=== PATIENT | female | born 1975 | race Caucasian/White ===

== ENCOUNTER 2017-02-06 17:58 | Emergency (ER) | payer BC, OTHER ==
[~2017-02-06] VITALS: Ht 160 cm; Wt 95.2 kg
[~2017-02-06 17:58] MED LIST: DIGESTIVE ENZYME PO; SERT100T PO
[2017-02-06 18:04] VITALS: TEMP 36.7; Ht 160 cm; Wt 95.2 kg
[2017-02-06] MEDS ORDERED: KETOROLAC TROMETHAMINE 60 MG/2 ML VIAL IM STA (18:18)
--- NOTE | 2017-02-06 19:06 | DIAGNOSTIC IMAGING REPORT ---
RIGHT WRIST W/NAVICULAR MIN 3 VIEWS CLINICAL HISTORY: right wrist pain/swelling s/p fall. COMPARISON: None FINDINGS: Alignment of the right carpal bones is anatomic. Carpal bones appear intact. There is a comminuted, displaced fracture of the base of the right fifth metacarpal with intra-articular extension. A few bone fragments are present. There is also a displaced comminuted fracture within the base of the proximal phalanx of the right fifth finger. IMPRESSION: 1. No carpal bone fracture identified. 2. Comminuted, displaced fracture of the base of the right fifth metacarpal with intra-articular extension. 3. Comminuted, displaced fracture of the base of the proximal phalanx of the right fifth finger. Electronically signed by: Amandeep Sims M.D. 02/06/2017 7:04 PM Dictated Date/Time: 02/06/2017 7:02 PM
--- NOTE | 2017-02-06 19:07 | DIAGNOSTIC IMAGING REPORT ---
RIGHT HAND MIN 3 VIEWS ROUTINE CLINICAL HISTORY: right hand pain/swelling s/p fall. COMPARISON: None FINDINGS: There is a comminuted, displaced fracture within the base of the right fifth metacarpal with intra-articular extension. A few bone fragments are present. There is an acute fracture within the base of the proximal phalanx of right fifth finger which is comminuted and displaced. No additional fractures are identified on this examination. IMPRESSION: 1. Comminuted, displaced fracture of the base of the right fifth metacarpal with intra-articular extension. 2. Comminuted, displaced fracture of the base of the proximal phalanx of the right fifth finger. Electronically signed by: Amandeep Sims M.D. 02/06/2017 7:05 PM Dictated Date/Time: 02/06/2017 7:04 PM
--- NOTE | 2017-02-06 20:12 | DIAGNOSTIC IMAGING REPORT ---
CT OF THE HEAD WITHOUT CONTRAST CLINICAL HISTORY: fall, head injury COMPARISON STUDY: Head CT October 14, 2014. CT DOSE: 537.48 mGy.cm TECHNIQUE: Helical axial images of the head were obtained without IV contrast. Automated exposure control was utilized for the study. A dose lowering technique was utilized adhering to the principles of ALARA. FINDINGS: No acute intracranial hemorrhage, midline shift or mass effect is present. Brain volume is normal. Ventricular system is normal. Basilar cisterns are patent. There are no extra-axial collections. Garza-white differentiation is maintained. There is no calvarial fracture. IMPRESSION: 1. No acute intracranial findings. 2. No calvarial fracture. Electronically signed by: Amandeep Sims M.D. 02/06/2017 8:11 PM Dictated Date/Time: 02/06/2017 8:08 PM
[2017-02-06] MEDS ORDERED: CEPH500C PO (20:28)
[2017-02-06] MEDS ORDERED: CEPHALEXIN 500MG HOME PACK 1 EA BTL PO ONE (20:30)
--- NOTE | 2017-02-06 20:33 | EMERGENCY ROOM VISIT NOTE ---
ED Visit Note First contact with patient: 18:10 CHIEF COMPLAINT: Fall, Hand injury, hit her head HISTORY OF PRESENT ILLNESS: This 41-year-old female patient presented to the emergency department approximately 30 minutes after they injured the posterior medial aspect of the right hand and fifth digit. The patient states she was walking in [place] [email or web address] on a sidewalk, when she tripped and stumbled and fell face first onto the sidewalk. The patient states she attempted to stop her fall with an outstretched right hand, however struck her face and now complains of abrasions on her face as well as right hand pain. The patient does have some minimal abrasions on her left hand and right knee as well. The patient rates the pain as throbbing and burning and 8/10. The patient denies any numbness or tingling. The patient does not have injuries to the wrist, but does report radiating pain from the hand to the wrist. The patient has not had a previous fracture to this hand. The patient denies loss of consciousness, confusion, altered mental status, nausea or vomiting immediately, blurry vision , ringing in the ears, or other associated symptoms. The patient is feeling nauseated in the ER on examination. REVIEW OF SYSTEMS: A 6 system review of systems was completed with positives and pertinent negatives in the HPI. ALLERGIES: None MEDICATIONS: None PMH: None SOCIAL HISTORY: She lives locally with her family. The patient denies drugs, alcohol, tobacco use. PHYSICAL EXAM: Vital Signs: Reviewed Nurse's notes, vital signs stable. GENERAL : This is a 41-year-old female, in no acute distress, but appears to be in pain , well-developed, well-nourished. HEAD: Normocephalic, atraumatic, with the exception of facial abrasions noted in Skin exam. EYES: Pupils are equal round and reactive to light and accommodation. EOMs are full and optic discs and fundi are normal. There is no swelling or discoloration of the tissue surrounding the eyes. EARS: External auditory canals clear without blood. NOSE : Patent without tenderness. No septal hematoma. FACE: No facial tenderness. NECK: Supple. There is no cervical spine tenderness. The patient does not have tenderness with movement of the neck. MUSCULOSKELETAL: There is a mild deformity of the right hand. There is tenderness on the medial aspect of the hand and fifth digit. There is no thenar or hypothenar eminence atrophy. Normal thumb opposition to all fingers. [employer] strength 4/5 on the right, limited due to pain. There is no laceration. Capillary refill less than 2 seconds. No tenderness of the fingers or wrist. Full range of motion of the wrist. No snuff box tenderness. Radial pulse 2+. SKIN: Superficial abrasions noted to anterior aspect of left palm, anterior right knee, nose, and edema noted to upper lip. NEURO: Alert and oriented to person, place, and time. Normal sensation to light and sharp touch. Normal Mini mental status exam. RADIOLOGY: X-Ray Hand: FINDINGS: There is a comminuted, displaced fracture within the base of the right fifth metacarpal with intra-articular extension. A few bone fragments are present. There is an acute fracture within the base of the proximal phalanx of right fifth finger which is comminuted and displaced. No additional fractures are identified on this examination. IMPRESSION: 1. Comminuted, displaced fracture of the base of the right fifth metacarpal with intra-articular extension. 2. Comminuted, displaced fracture of the base of the proximal phalanx of the right fifth finger. X-Ray Right Wrist: FINDINGS: Alignment of the right carpal bones is anatomic. Carpal bones appear intact. There is a comminuted, displaced fracture of the base of the right fifth metacarpal with intra-articular extension. A few bone fragments are present. There is also a displaced comminuted fracture within the base of the proximal phalanx of the right fifth finger. IMPRESSION: 1. No carpal bone fracture identified. 2. Comminuted, displaced fracture of the base of the right fifth metacarpal with intra-articular extension. 3. Comminuted, displaced fracture of the base of the proximal phalanx of the right fifth finger. CT Head without contrast: FINDINGS: No acute intracranial hemorrhage, midline shift or mass effect is present. Brain volume is normal. Ventricular system is normal. Basilar cisterns are patent. There are no extra-axial collections. Garza-white differentiation is maintained. There is no calvarial fracture. IMPRESSION: 1. No acute intracranial findings. 2. No calvarial fracture. EMERGENCY DEPARTMENT COURSE: I examined the patient. The patient was given a dose of Toradol 60mg IM. An x-ray of the right wrist and hand was reviewed by myself and radiologist and shows comminuted, displaced fracture of the base of the right fifth metacarpal as well as of the base of the right fifth proximal phalange. The patient's wounds were cleansed with sterile saline and gauze. Bacitracin antibiotic ointment was applied to the wounds. A ulnar gutter Ortho- Glass splint was applied with extension to the tips of the fingers due to phalangeal fracture. Xeroform gauze was used below the Ortho-Glass splint to cover abrasions noted on patient's fourth and fifth digits. Neurovascular status was rechecked and intact. The patient was placed in an arm sling. I did offer the patient pain medications for at home, and she declined. The patient was discharged home in good condition. DIFFERENTIAL DIAGNOSIS: Distal radius or ulna fracture, carpal bone fracture, metacarpal bone fracture, phalangeal fracture, multiple contusions, superficial abrasions, infection, facial fracture, intracranial hemorrhage, patellar fracture, and others. DIAGNOSIS: Right fifth metacarpal fracture, right fifth proximal phalangeal fracture of the right hand, various contusions of multiple sites DISCHARGE INSTRUCTIONS: ORTHOPEDIC INSTRUCTIONS: Ibuprofen(Motrin, Advil) may be used for fever or pain. Use 600mg every six hours as needed. Take with food. Avoid using more than 2400mg in a 24 hour period. Do not use 2400mg per day for more than three consecutive days without physician direction. Prolonged inappropriate use can lead to stomach upset or ulcers. (AND/OR) Acetaminophen(Tylenol) may be used for fever or pain. Use 1000mg every six hours as needed. Avoid using more than 3000mg in a 24 hour period. Ice compresses for 20 minutes at a time four times daily for 2-3 days. Use the sling as instructed. Remove your arm from the sling 4-6 times a day and move all the joints around to keep them loose. Rest and elevate your injury. Do not get the splint wet. If your splint feels excessively tight, you have worsening pain, develop numbness or tingling, or your digits appear blue, loosen the lobo wrap. Then reapply the lobo wrap gently without removing the splint. If your symptoms are not quickly relieved return to the ER for re- evaluation. Return to the ER immediately for any numbness, tingling, severe pain, extreme swelling in the extremity or as needed. You were prescribed Keflex to be taken 4x daily. This is an antibiotic. All antibiotics have the potential to cause diarrhea. Stop this medication and contact a medical provider if you were to develop any significant adverse side effects including: wheezing, shortness of breath, passing out, vomiting, or a diffuse rash. Always take antibiotics as directed and COMPLETE the ENTIRE course regardless of the improvement of your symptoms. Proper wound care is essential for adequate wound healing and infection prevention. You can shower and clean the wound with soap and water. Do not scour over the wound, pat dry with a towel. Do not submerse the wound (i.e. bathe or dish wash) until the wound has fully healed. You can use an antibiotic ointment with a dressing over the wound for the next 3-4 days. After this time you may leave the wound dry and open to the air. Call [facility], [phone], on Wednesday to arrange follow up for your injury. Follow-up with your primary care physician in 2 to 3 days for a recheck of your current condition. Current/Historical Medications Scheduled Cephalexin Monohydrate (Keflex), 500 MG PO QID Allergies Coded Allergies: No Known Allergies (Unverified , 03/03/12) Vital Signs Date Time Temp Pulse Resp B/P (MAP) Pulse Ox O2 Delivery O2 Flow Rate FiO2 02/06/17 18:04 36.7 101 18 168/103 97 Room Air Medications Administered Medications (Trade) Dose Ordered Sig/Ramos Route Start Time Stop Time Status Last Admin Dose Admin Ketorolac Tromethamine (Toradol Inj) 60 mg NOW STAT IM 02/06/17 18:18 02/06/17 18:20 DC 02/06/17 18:32 60 MG Departure Information Impression Primary Impression: Fracture of metacarpal base of right hand, closed Additional Impressions: Fracture of phalanx of finger of left hand Contusion of multiple sites Dispostion Home / Self-Care Condition GOOD Prescriptions Cephalexin Monohydrate (Keflex) 500 Mg Cap 500 MG PO QID for 10 Days, #40 CAP Prov: Ayla Menard, PACheryl 02/06/17 Referrals Ivonne Anderson DO (PCP) Patient Instructions ED Fx Finger Closed, ED Fx Hand Closed, [facility] Additional Instructions ORTHOPEDIC INSTRUCTIONS: Ibuprofen(Motrin, Advil) may be used for fever or pain. Use 600mg every six hours as needed. Take with food. Avoid using more than 2400mg in a 24 hour period. Do not use 2400mg per day for more than three consecutive days without physician direction. Prolonged inappropriate use can lead to stomach upset or ulcers. (AND/OR) Acetaminophen(Tylenol) may be used for fever or pain. Use 1000mg every six hours as needed. Avoid using more than 3000mg in a 24 hour period. Ice compresses for 20 minutes at a time four times daily for 2-3 days. Use the sling as instructed. Remove your arm from the sling 4-6 times a day and move all the joints around to keep them loose. Rest and elevate your injury. Do not get the splint wet. If your splint feels excessively tight, you have worsening pain, develop numbness or tingling, or your digits appear blue, loosen the lobo wrap. Then reapply the lobo wrap gently without removing the splint. If your symptoms are not quickly relieved return to the ER for re- evaluation. Return to the ER immediately for any numbness, tingling, severe pain, extreme swelling in the extremity or as needed. You were prescribed Keflex to be taken 4x daily. This is an antibiotic. All antibiotics have the potential to cause diarrhea. Stop this medication and contact a medical provider if you were to develop any significant adverse side effects including: wheezing, shortness of breath, passing out, vomiting, or a diffuse rash. Always take antibiotics as directed and COMPLETE the ENTIRE course regardless of the improvement of your symptoms. Proper wound care is essential for adequate wound healing and infection prevention. You can shower and clean the wound with soap and water. Do not scour over the wound, pat dry with a towel. Do not submerse the wound (i.e. bathe or dish wash) until the wound has fully healed. You can use an antibiotic ointment with a dressing over the wound for the next 3-4 days. After this time you may leave the wound dry and open to the air. Call [facility], [phone], on Wednesday to arrange follow up for your injury. Follow-up with your primary care physician in 2 to 3 days for a recheck of your current condition. Problem Qualifiers Primary Impression: Fracture of metacarpal base of right hand, closed Encounter type: initial encounter Metacarpal bone: fifth Fracture alignment : displaced Qualified Codes: S62.316A - Displaced fracture of base of fifth metacarpal bone, right hand, initial encounter for closed fracture Additional Impressions: Fracture of phalanx of finger of left hand Encounter type: initial encounter Finger: little finger Fracture type: closed Phalanx: proximal Fracture alignment: displaced Qualified Codes: S62.617A - Displaced fracture of proximal phalanx of left little finger, initial encounter for closed fracture
[2017-02-06 20:41] VITALS: BP 161/101; PULSE 85; O2SAT 98
== END 2017-02-06 20:42 | disposition home or self-care (01) ==
LOC: C.EDB 18:01 → C.EDD 20:42
DX: S62.616A Displaced fracture of proximal phalanx of right little finger, initial encounter for closed fracture (principal); S62.316A Displaced fracture of base of fifth metacarpal bone, right hand, initial encounter for closed fracture; S00.81XA Abrasion of other part of head, initial encounter; S80.211A Abrasion, right knee, initial encounter; S60.512A Abrasion of left hand, initial encounter; W18.39XA Other fall on same level, initial encounter; Y92.480 Sidewalk as the place of occurrence of the external cause